=== PATIENT | male | born 1960 | race Caucasian/White ===

== ENCOUNTER 2017-06-16 17:03 | Emergency (ER) | payer MEDICARE ==
[2017-06-16 17:10] VITALS: BP 124/71; BMI 28.5
--- NOTE | 2017-06-16 21:05 | DR.GENAD ---
HPI - PCP Primary Care Physician: BEENA - Complaint/Symptoms Chief Complaint Doctors Comments: History as stated. Patient presents with generalized body aches and pain.. Did not get influenza immunization. Chief Complaint:: DRY COUGHING, BODY ACHES AND RUNNING FEVER AT HOME. TEMP 99.8. WEAK WITH NO ENERGY. WENT TO OFFICE, GIVEN ANTIBIOTICS - Source History Provided: Patient - Mode of Arrival Mode of Arrival: Ambulatory - Timing Onset of Chief Complaint: 06/09/17 PMH - PMH Past Medical History: No Past Surgical History: No - Family History History of Family Medical Conditions: Yes Family Medical History: Cancer - Social History Does patient currently use any type of tobacco product: Yes Have you used tobacco products in the last 12 months: Yes Type of Tobacco Use: Cigarettes How many years tobacco product used: 30 Does any household member use tobacco: Yes Alcohol Use: None Do you use any recreational Drugs:: No Lives With: Spouse Lives Where: Home - infectious screening In the last 2 months have you had wt loss of >10#?: NO Have you had fever, night sweats or hemotysis?: No Have you traveled outside the country in the last 6 months?: No Isolation: Standard ROS - Review of Systems Eyes: No Symptoms Reported ENTM: No Symptoms Reported Respiratoy: No Symptoms Reported Cardiovascular: No Symptoms Reported Gastrointestinal/Abdominal: No Symptoms Reported Genitourinary: No Symptoms Reported Neurological: No Symptoms Reported Musculoskeletal: No Symptoms Reported Integumentary: No Symptoms Reported Hematologic/Lymphatic: No Symptoms Reported Endocrine: No Symptoms Reported Psychiatric: No Symptoms Reported All Other Systems: Reviewed and Negative PE - Vital Signs Vitals: Temperature 98 F Pulse Rate 88 Respiratory Rate 20 Blood Pressure 124/71 O2 Sat by Pulse Oximetry 97 - General General Appearance: Alert, In Distress - Head Head Exam: Normal Inspection, Atraumatic - Eyes Eye exam: Normal Appearance, PERRL, EOMI - ENT ENT Exam: Normal Exam External Ear Exam: Normal External Inspection TM/Canal Exam: Bilateral Normal Nose Exam: Normal Nose Exam Mouth Exam: Normal Inspection Throat Exam: Normal Inspection - Neck Neck Exam: Normal Inspection, Full ROM - Chest Chest Inspection: Normal Inspection, Symmetric Chest Wall Rise - Respiratory Respiratory Exam: Normal Lung Sounds Bilat Respiratory Exam: Bilateral Clear to Auscultation - Cardiovascular Cardiovascular Exam: Regular Rate, Normal Rhythm - Abdominal Exam Abdominal Exam: Normal Inspection, Normal Bowel Sounds Abdominal Tenderness: negative: RUQ, RLQ, LUQ, LLQ, Epigastrium, Suprapubic, Diffuse, Mild, Moderate, Severe, Other - Extremities Extremities Exam: Normal Inspection, Full ROM - Back Back Exam: Normal Inspection, Full ROM - Neurologic Neurological Exam: Alert, Oriented X3, CN II-XII Intact - Psychiatric Psychiatric Exam: Normal Affect, Normal Mood - Skin Skin Exam: Warm, Dry, Intact Course - Education/Counseling Educated On: Treatment, Diagnosis, Prognosis ROR - Labs Reviewed Laboratory Results Reviewed?: Yes (influenza B positive) Result Diagrams: 06/16/17 21:23 06/16/17 21:23 Laboratory: WBC 21.4 X10^3/uL (3.6-10.0) H 06/16/17 21: RBC 4.98 X10^6/uL (4.7-6.0) 06/16/17 21: Hgb 15.9 g/dL (13.5-18.0) 06/16/17 21: Hct 44.5 % (42.0-54.0) 06/16/17 21: MCV 89.3 fL (80.0-100.0) 06/16/17 21: MCH 31.9 pg (27.0-34.0) 06/16/17 21: MCHC 35.7 g/dL (33.0-35.0) H 06/16/17 21: RDW 12.9 % (11.6-16.5) 06/16/17 21: Plt Count 296 X10^3/uL (150.0-450.0) 06/16/17 21: Plt Count Comment Adequate (ADEQUATE) 06/16/17 21: MPV 8.1 fL (7.4-11.0) 06/16/17 21:23 Neut % (Auto) 82.4 % (42.0-75.0) H 06/16/17 21: Lymph % (Auto) 7.9 % (21.0-51.0) L 06/16/17 21:23 [place] % (Auto) 9.3 % (0.0-13.0) 06/16/17 21: Eos % (Auto) 0.2 % (0.9-2.9) L 06/16/17 21:23 Baso % (Auto) 0.2 % (0.2-1.0) 06/16/17 21:23 Neut # (Auto) 17.6 x10^3/uL (2.2-4.8) H 06/16/17 21:23 Lymph # (Auto) 1.7 X10^3/uL (1.3-2.9) 06/16/17 21:23 [place] # (Auto) 2.0 x10^3/uL (0.3-0.8) H 06/16/17 21:23 Eos # (Auto) 0.0 x10^3/uL (0.0-0.2) 06/16/17 21:23 Baso # (Auto) 0.0 X10^3/uL (0.0-0.1) 06/16/17 21: Absolute Nucleated RBC 0.1 /100WBC 06/16/17 21: Total Counted 100 06/16/17 21: Neutrophils % (Manual) 76 % (39-76) 06/16/17 21:23 Band Neutrophils % 4 % (0-10) 06/16/17 21:23 Lymphocytes % (Manual) 8 % (13-43) L 06/16/17 21:23 Monocytes % (Manual) 12 % (4-9) H 06/16/17 21:23 Plt Morphology Comment Normal (NORMAL) 06/16/17 21: RBC Morphology Normal (NORMAL) 06/16/17 21:23 Sodium 139 mmol/L (136-145) 06/16/17 21:23 Corrected Sodium 141 mmol/L (136-145) 06/16/17 21:23 Potassium 3.3 mmol/L (3.5-5.1) L 06/16/17 21:23 Chloride 99 mmol/L (98-107) 06/16/17 21:23 Carbon Dioxide 29.7 mmol/L (21-32) 06/16/17 21: BUN 10 mg/dL (7-18) 06/16/17 21: Creatinine 0.99 mg/dL (0.70-1.30) 06/16/17 21:23 Est GFR (MDRD) Af Amer > 60 (>60) 06/16/17 21: Est GFR (MDRD) Non-Af > 60 (>60) 06/16/17 21:23 Glucose 169 mg/dL (65-99) H 06/16/17 21:23 Calcium 8.9 mg/dL (8.5-10.1) 06/16/17 21:23 Corrected Calcium TNP 06/16/17 21:23 Total Bilirubin 1.00 mg/dL (0.2-1.0) 06/16/17 21:23 AST 19 Units/L (15-37) 06/16/17 21:23 ALT 31 Units/L (12-78) 06/16/17 21:23 Alkaline Phosphatase 121 Units/L (46-116) H 06/16/17 21:23 Total Protein 8.5 g/dL (6.4-8.2) H 06/16/17 21:23 Albumin 3.6 g/dL (3.4-5.0) 06/16/17 21:23 Globulin 4.9 g/dL (2.5-4.5) H 06/16/17 21:23 Albumin/Globulin Ratio 0.7 Ratio (1.1-2.1) L 06/16/17 21:23 Influenza Type A (PCR) Negative (NEGATIVE) 06/16/17 21:33 Influenza Type B (PCR) Positive (NEGATIVE) A 06/16/17 21:33 - Diagnosis Discharge Problem: Influenza B - Discharge Plan Condition: Stable - Follow ups/Referrals Follow ups/Referrals: VAL JAIME [Primary Care Provider] - 3 days - Instructions
[2017-06-16] MEDS ORDERED: NS 1000 ML 1,000 ML IV ONE (21:06)
[2017-06-16] MEDS ORDERED: TORADOL 30 MG VIAL IVP ONE (21:07)
[2017-06-16] MEDS ORDERED: TORADOL 30 MG VIAL ONE (21:23)
[2017-06-16] MEDS ORDERED: NS 1000 ML 1,000 ML ONE (21:23)
[2017-06-16] MEDS ORDERED: TORADOL 60 MG VIAL ONE (21:24)
[2017-06-16 21:43] LABS: ALANINE AMINOTRANSFERASE 31 Units/L (12-78); ALBUMIN 3.6 g/dL (3.4-5.0); ALKALINE PHOSPHATASE 121 Units/L (46-116); ASPARTATE AMINO TRANSFERASE 19 Units/L (15-37); BLOOD UREA NITROGEN 10 mg/dL (7-18); CALCIUM 8.9 mg/dL (8.5-10.1); CARBON DIOXIDE 29.7 mmol/L (21-32); CHLORIDE 99 mmol/L (98-107); COR NA(FOR HYPERGLY) 141 mmol/L (136-145); CREATININE 0.99 mg/dL (0.70-1.30); SODIUM 139 mmol/L (136-145); TOTAL PROTEIN 8.5 g/dL (6.4-8.2); eGFR BLACK RACES > 60 (>60); eGFR NON BLACK RACES > 60 (>60)
[2017-06-16 21:45] LABS: BASOPHILS % (AUTO) 0.2 % (0.2-1.0); EOSINOPHILS % (AUTO) 0.2 % (0.9-2.9); HEMATOCRIT 44.5 % (42.0-54.0); HEMOGLOBIN 15.9 g/dL (13.5-18.0); LYMPHOCYTES # (AUTO) 1.7 X10^3/uL (1.3-2.9); LYMPHOCYTES % (AUTO) 7.9 % (21.0-51.0); MEAN CORPUSCULAR HEMOGLOBIN 31.9 pg (27.0-34.0); MEAN CORPUSCULAR HGB CONC 35.7 g/dL (33.0-35.0); MEAN CORPUSCULAR VOLUME 89.3 fL (80.0-100.0); MEAN PLATELET VOLUME 8.1 fL (7.4-11.0); MONOCYTES % (AUTO) 9.3 % (0.0-13.0); NEUTROPHILS # (AUTO) 17.6 x10^3/uL (2.2-4.8); NEUTROPHILS % (AUTO) 82.4 % (42.0-75.0); PLATELET COUNT 296 X10^3/uL (150.0-450.0); RED BLOOD COUNT 4.98 X10^6/uL (4.7-6.0); RED CELL DISTRIBUTION WIDTH 12.9 % (11.6-16.5); WHITE BLOOD COUNT 21.4 X10^3/uL (3.6-10.0)
[2017-06-16 21:58] LABS: BAND NEUTROPHILS % 4 % (0-10); PLATELET MORPHOLOGY COMMENT NORMAL (NORMAL)
[2017-06-16] MEDS ORDERED: K-LYTE EFFERVESCENT PO ONE (22:20)
[2017-06-16] MEDS ORDERED: K-LYTE EFFERVESCENT ONE (22:32)
== END 2017-06-16 23:03 | disposition home or self-care (01) ==
LOC: ER 17:17
DX: J10.1 Influenza due to other identified influenza virus with other respiratory manifestations (principal)
CPT/HCPCS: 36415; 80053; 85025; 87502; 96365; 96374; 99282; 99283; J1885

== ENCOUNTER 2017-06-20 15:26 | Inpatient (IN) | payer MEDICARE ==
[2017-06-20] MEDS ORDERED: TUSSIONEX PENNKINETIC SUSP PO PRN (15:56)
[2017-06-20] MEDS: PROVENTIL NEB TX 0.083% 2.5MG/ 3ML NEB SCH ×3 (16:02→21:28)
[2017-06-20] MEDS: LR 1000 ML IV 1,000 ML IV SCH (16:19)
[2017-06-20] MEDS: ROBITUSSIN DM PO SCH ×2 (16:19→23:37)
[2017-06-20] MEDS: LEVAQUIN PREMIX IV 750 MG 750 MG/150 ML BAG IV SCH (16:19)
[2017-06-20 16:37] LABS: BASOPHILS % (AUTO) 0.1 % (0.2-1.0); HEMATOCRIT 39.9 % (42.0-54.0); HEMOGLOBIN 14.2 g/dL (13.5-18.0); LYMPHOCYTES # (AUTO) 0.7 X10^3/uL (1.3-2.9); LYMPHOCYTES % (AUTO) 1.7 % (21.0-51.0); MEAN CORPUSCULAR HEMOGLOBIN 31.8 pg (27.0-34.0); MEAN CORPUSCULAR HGB CONC 35.6 g/dL (33.0-35.0); MEAN CORPUSCULAR VOLUME 89.3 fL (80.0-100.0); MEAN PLATELET VOLUME 8.1 fL (7.4-11.0); MONOCYTES # (AUTO) 2.9 x10^3/uL (0.3-0.8); MONOCYTES % (AUTO) 6.9 % (0.0-13.0); NEUTROPHILS % (AUTO) 91.3 % (42.0-75.0); PLATELET COUNT 464 X10^3/uL (150.0-450.0); RED BLOOD COUNT 4.47 X10^6/uL (4.7-6.0); RED CELL DISTRIBUTION WIDTH 12.8 % (11.6-16.5)
[2017-06-20 16:49] LABS: ALANINE AMINOTRANSFERASE 21 Units/L (12-78); ALBUMIN 2.7 g/dL (3.4-5.0); ALKALINE PHOSPHATASE 179 Units/L (46-116); ASPARTATE AMINO TRANSFERASE 14 Units/L (15-37); BLOOD UREA NITROGEN 21 mg/dL (7-18); CALCIUM 9.6 mg/dL (8.5-10.1); CARBON DIOXIDE 27.2 mmol/L (21-32); CHLORIDE 94 mmol/L (98-107); COR CA(FOR HYPOALB) 10.6 mg/dL (8.5-10.1); COR NA(FOR HYPERGLY) 141 mmol/L (136-145); CREATININE 1.17 mg/dL (0.70-1.30); SODIUM 135 mmol/L (136-145); TOTAL PROTEIN 8.7 g/dL (6.4-8.2); eGFR BLACK RACES > 60 (>60); eGFR NON BLACK RACES > 60 (>60)
[2017-06-20 16:54] LABS: WHITE BLOOD COUNT 41.7 X10^3/uL (3.6-10.0)
[2017-06-20 16:59] LABS: BAND NEUTROPHILS % 10 % (0-10)
[2017-06-20 17:02] LABS: PLATELET MORPHOLOGY COMMENT ABNORMAL (NORMAL)
[2017-06-20] MEDS: TORADOL 30 MG VIAL IVP PRN ×2 (17:22→23:53)
[2017-06-20] MEDS: K-DUR TAB 20 MEQ PO SCH (17:22)
[2017-06-20 17:27] VITALS: BMI 29.9
[2017-06-20] MEDS: HumuLIN R SUBCUT PRN ×2 (17:42→20:41)
[2017-06-20] MEDS: ZITHROMAX INJ 500 MG VIAL 500 MG in NS 250 ML IV 250 ML IV SCH (18:19)
[2017-06-20] MEDS: TAMIFLU PO SCH (20:41)
[2017-06-20] MEDS: SNACK - Diabetic Appropriate PO SCH (23:54)
[2017-06-21] MEDS: LR 1000 ML IV 1,000 ML IV SCH ×3 (02:58→17:09)
[2017-06-21] MEDS: HumuLIN R SUBCUT PRN ×2 (05:57→11:52)
[2017-06-21 06:37] LABS: ALANINE AMINOTRANSFERASE 17 Units/L (12-78); ALBUMIN 2.1 g/dL (3.4-5.0); ALKALINE PHOSPHATASE 158 Units/L (46-116); ASPARTATE AMINO TRANSFERASE 13 Units/L (15-37); BLOOD UREA NITROGEN 24 mg/dL (7-18); CALCIUM 9.1 mg/dL (8.5-10.1); CARBON DIOXIDE 28.6 mmol/L (21-32); CHLORIDE 95 mmol/L (98-107); COR CA(FOR HYPOALB) 10.6 mg/dL (8.5-10.1); COR NA(FOR HYPERGLY) 140 mmol/L (136-145); CREATININE 0.99 mg/dL (0.70-1.30); SODIUM 136 mmol/L (136-145); TOTAL PROTEIN 7.6 g/dL (6.4-8.2); eGFR BLACK RACES > 60 (>60); eGFR NON BLACK RACES > 60 (>60)
[2017-06-21 06:38] LABS: BASOPHILS # (AUTO) 0.1 X10^3/uL (0.0-0.1); BASOPHILS % (AUTO) 0.2 % (0.2-1.0); HEMATOCRIT 36.1 % (42.0-54.0); HEMOGLOBIN 12.7 g/dL (13.5-18.0); LYMPHOCYTES % (AUTO) 2.8 % (21.0-51.0); MEAN CORPUSCULAR HEMOGLOBIN 31.6 pg (27.0-34.0); MEAN CORPUSCULAR HGB CONC 35.3 g/dL (33.0-35.0); MEAN CORPUSCULAR VOLUME 89.4 fL (80.0-100.0); MEAN PLATELET VOLUME 8.2 fL (7.4-11.0); MONOCYTES # (AUTO) 2.3 x10^3/uL (0.3-0.8); MONOCYTES % (AUTO) 6.5 % (0.0-13.0); NEUTROPHILS # (AUTO) 31.5 x10^3/uL (2.2-4.8); NEUTROPHILS % (AUTO) 90.5 % (42.0-75.0); PLATELET COUNT 427 X10^3/uL (150.0-450.0); RED BLOOD COUNT 4.04 X10^6/uL (4.7-6.0); RED CELL DISTRIBUTION WIDTH 12.6 % (11.6-16.5)
[2017-06-21 06:48] LABS: WHITE BLOOD COUNT 34.8 X10^3/uL (3.6-10.0)
[2017-06-21 06:51] LABS: BAND NEUTROPHILS % 4 % (0-10); PLATELET MORPHOLOGY COMMENT NORMAL (NORMAL)
--- NOTE | 2017-06-21 06:59 | RAD ---
HISTORY: Right-sided chest pain, fever Study: Chest PA and lateral Comparison: 06/20/2017 Findings: The heart is within normal limits in size. The [place] appear within normal limits. Dense consolidating segmental pneumonia is present in the right upper lobe unchanged from the prior examination. Consolid ating right middle lobe pneumonia is also unchanged. The left lung is clear. No definite pleural effu sions are identified. Follow-up of these infiltrates is recommended until they have completely resolv ed in order to exclude underlying neoplasm. IMPRESSION: No change right upper/right middle lobe pneumonia Reported By:
[2017-06-21] MEDS: TORADOL 30 MG VIAL IVP PRN ×2 (07:11→17:10)
[2017-06-21] MEDS: ZITHROMAX INJ 500 MG VIAL 500 MG in NS 250 ML IV 250 ML IV SCH (08:53)
[2017-06-21] MEDS: LEVAQUIN PREMIX IV 750 MG 750 MG/150 ML BAG IV SCH (08:53)
[2017-06-21] MEDS: TAMIFLU PO SCH ×2 (08:53→20:33)
[2017-06-21] MEDS: K-DUR TAB 20 MEQ PO SCH (08:53)
[2017-06-21] MEDS: ROBITUSSIN DM PO SCH ×4 (08:53→20:33)
[2017-06-21] MEDS: PROVENTIL NEB TX 0.083% 2.5MG/ 3ML NEB SCH ×4 (09:02→21:01)
[2017-06-21] MEDS: GLUCOPHAGE XR PO SCH ×2 (10:00→20:33)
[2017-06-21] MEDS: ACTOS PO SCH (10:00)
[2017-06-21] MEDS ORDERED: MAGNESIUM SULFATE 1 GM/100 mL PREMIX 1 GM/100 ML BAG IV PRN (14:29)
[2017-06-21] MEDS ORDERED: POTASSIUM CHL 60 MEQ/NS 0.45% 500 ML IV PRN (14:29)
[2017-06-21] MEDS ORDERED: K-RIDER 10 MEQ/NS 100 ML 10 MEQ/100 ML BAG IV PRN (14:29)
[2017-06-21] MEDS ORDERED: POTASSIUM CHLORIDE LIQ 20 MEQ UDC PO PRN (14:29)
[2017-06-21] MEDS ORDERED: MAG-OX TAB PO PRN (14:29)
[2017-06-21] MEDS ORDERED: POTASSIUM CHL 40 MEQ/NS 0.45% 500 ML IV PRN (14:29)
[2017-06-21] MEDS ORDERED: K-LYTE EFFERVESCENT PO PRN (14:29)
[2017-06-21] MEDS: SNACK - Diabetic Appropriate PO SCH (20:34)
[2017-06-21] MEDS ORDERED: RESTORIL CAP 15 MG PO PRN (22:31)
[2017-06-21] MEDS ORDERED: COLACE CAP 100 MG PO PRN (22:42)
[2017-06-21] MEDS ORDERED: MILK OF MAGNESIA PO PRN (22:42)
[2017-06-22] MEDS: LR 1000 ML IV 1,000 ML IV SCH ×2 (00:56→05:55)
[2017-06-22 04:13] LABS: BASOPHILS # (AUTO) 0.1 X10^3/uL (0.0-0.1); BASOPHILS % (AUTO) 0.4 % (0.2-1.0); HEMATOCRIT 36.4 % (42.0-54.0); HEMOGLOBIN 12.7 g/dL (13.5-18.0); LYMPHOCYTES # (AUTO) 0.7 X10^3/uL (1.3-2.9); LYMPHOCYTES % (AUTO) 2.4 % (21.0-51.0); MEAN CORPUSCULAR HEMOGLOBIN 31.6 pg (27.0-34.0); MEAN CORPUSCULAR HGB CONC 34.8 g/dL (33.0-35.0); MEAN CORPUSCULAR VOLUME 90.6 fL (80.0-100.0); MEAN PLATELET VOLUME 7.8 fL (7.4-11.0); MONOCYTES # (AUTO) 2.2 x10^3/uL (0.3-0.8); MONOCYTES % (AUTO) 7.5 % (0.0-13.0); NEUTROPHILS % (AUTO) 89.7 % (42.0-75.0); PLATELET COUNT 418 X10^3/uL (150.0-450.0); RED BLOOD COUNT 4.02 X10^6/uL (4.7-6.0); RED CELL DISTRIBUTION WIDTH 12.9 % (11.6-16.5)
[2017-06-22 04:26] LABS: ALANINE AMINOTRANSFERASE 26 Units/L (12-78); ALBUMIN 1.8 g/dL (3.4-5.0); ALKALINE PHOSPHATASE 157 Units/L (46-116); ASPARTATE AMINO TRANSFERASE 64 Units/L (15-37); BLOOD UREA NITROGEN 22 mg/dL (7-18); CALCIUM 8.3 mg/dL (8.5-10.1); CARBON DIOXIDE 24.6 mmol/L (21-32); CHLORIDE 94 mmol/L (98-107); COR CA(FOR HYPOALB) 10.1 mg/dL (8.5-10.1); COR NA(FOR HYPERGLY) 137 mmol/L (136-145); CREATININE 0.98 mg/dL (0.70-1.30); SODIUM 132 mmol/L (136-145); TOTAL PROTEIN 6.7 g/dL (6.4-8.2); eGFR BLACK RACES > 60 (>60); eGFR NON BLACK RACES > 60 (>60)
[2017-06-22 04:56] LABS: CKMB % 10.2 % (<4)
[2017-06-22 05:00] LABS: CREATINE KINASE MB 24.3 ng/mL (0-4.0); TROPONIN I 3.3 ng/mL (0-1.5)
[2017-06-22] MEDS ORDERED: HEPARIN SODIUM IN D5W 25,000 UNITS/500 ML BAG IV PRN (05:19)
[2017-06-22 05:22] LABS: BAND NEUTROPHILS % 13 % (0-10); METAMYELOCYTES % 1
[2017-06-22 05:23] LABS: PLATELET MORPHOLOGY COMMENT NORMAL (NORMAL)
[2017-06-22] MEDS ORDERED: HEPARIN SODIUM INJ 5000 UNITS IVP ONE (05:30)
[2017-06-22 06:44] LABS: ABG BASE EXCESS 2.8 mmol/L (-2.0-2.0); ABG HCO3 25.9 mmol/L (22-26)
[2017-06-22] MEDS: HumuLIN R SUBCUT PRN (06:47)
[2017-06-22] MEDS: LEVAQUIN PREMIX IV 750 MG 750 MG/150 ML BAG IV SCH (08:19)
[2017-06-22] MEDS: ACTOS PO SCH (08:20)
[2017-06-22] MEDS: ROBITUSSIN DM PO SCH (08:20)
[2017-06-22] MEDS: GLUCOPHAGE XR PO SCH (08:20)
[2017-06-22] MEDS: TAMIFLU PO SCH (08:20)
[2017-06-22] MEDS: ZITHROMAX INJ 500 MG VIAL 500 MG in NS 250 ML IV 250 ML IV SCH (08:20)
[2017-06-22] MEDS: K-DUR TAB 20 MEQ PO SCH (08:20)
[2017-06-22] MEDS ORDERED: LOPRESSOR INJ 5 MG AMP IVP ONE (08:58)
[2017-06-22] MEDS ORDERED: ASPIRIN PO SCH (09:00)
[2017-06-22] MEDS ORDERED: NS 1000 ML 1,000 ML IV SCH (09:00)
[2017-06-22 09:43] LABS: CKMB % 12.4 % (<4)
[2017-06-22 09:54] LABS: CREATINE KINASE MB 67.2 ng/mL (0-4.0); TROPONIN I 19.91 ng/mL (0-1.5)
[2017-06-22] MEDS ORDERED: PLAVIX PO SCH (10:00)
[2017-06-22 10:21] VITALS: BP 104/76
== END 2017-06-22 11:00 | disposition short-term general hospital (02) | DRG 177 ==
LOC: OBSVTOIN 15:26 → INTOOBSV 15:26 → MED/SURG 15:26 → ICU 06-22 05:24
PROVIDERS: ADMIT Obstetrics & Gynecology Obstetrics; ATTEND Obstetrics & Gynecology Obstetrics
DX: J15.212 Pneumonia due to Methicillin resistant Staphylococcus aureus (principal); I21.29 ST elevation (STEMI) myocardial infarction involving other sites; A41.02 Sepsis due to Methicillin resistant Staphylococcus aureus; J10.08 Influenza due to other identified influenza virus with other specified pneumonia; I48.91 Unspecified atrial fibrillation; E11.65 Type 2 diabetes mellitus with hyperglycemia; B95.62 Methicillin resistant Staphylococcus aureus infection as the cause of diseases classified elsewhere; R06.02 Shortness of breath; R53.1 Weakness
CPT/HCPCS: 36415; 36600; 71046; 80053; 82550; 82553; 82803; 83735; 84484; 85025; 85730; 87040; 87070; 87077; 87186; 87205; 87502; 93005; 93010; 94640; 94760; A4222; G9035; J0456; J1644; J1815; J1885; J1956; J3490; J7120; J7613

== ENCOUNTER → 2017-06-20 | Outpatient (CLI) | payer MEDICARE ==
[2017-06-16 17:10] VITALS: BP 124/71
--- NOTE | 2017-06-20 10:46 | RAD ---
PA and lateral chest Indication: Right-sided chest pain with fever Findings: Dense consolidation within the right upper lobe and right middle lobe consistent with multi focal pneumonia. Small amount of fluid is noted layering within the right minor fissure and right co stophrenic sulcus. Left lung is clear. Heart size is normal. No acute osseous abnormality. Impression: Multifocal pneumonia within the right upper and middle lobes with parapneumonic effusion tracking into the right minor fissure and posterior right costophrenic sulcus. Radiographic follow-up in 6-8 weeks is recommended to ensure complete resolution. Reported By:
== END | disposition home or self-care (01) | DRG 204 ==
LOC: RAD 10:15
PROVIDERS: ATTEND Obstetrics & Gynecology Obstetrics
DX: R05 Cough (principal); J18.9 Pneumonia, unspecified organism
CPT/HCPCS: 71046